=== PATIENT | male | born 1980 ===

== ENCOUNTER 2018-09-11 19:36 | Emergency (ER) | payer SELFPAY ==
[2018-09-11 19:54] VITALS: RESP 18
[2018-09-11] MEDS ORDERED: Oxycodone/Acetaminophen 5/325 mg Tab PO STA (20:04)
[2018-09-11] MEDS ORDERED: Oxycodone/Acetaminophen 5/325 mg Tab ONE (20:17)
--- NOTE | 2018-09-11 20:55 | C.PDOC ---
History Of Present Illness 38 y/o male comes in to ED stating that he was working and was reaching for something when he felt a pop in his shoulder. States that he couldnt move his arm without having pain. He denies weakness, numbness, or other complaints. <Iqra Kruse - Last Filed: 09/11/18 23:01> History Per: Patient History/Exam Limitations: no limitations Onset/Duration Of Symptoms: Hrs Current Symptoms Are (Timing): Still Present <Iqra Kruse - Last Filed: 09/11/18 23:01> <Tasia Pierce - Last Filed: 09/12/18 01:02> Time Seen by Provider: 09/11/18 19:56 Chief Complaint (Nursing): Upper Extremity Problem/Injury Past Medical History Reviewed: Historical Data, Nursing Documentation, Vital Signs Vital Signs: Last Vital Signs Temp 98.7 F 09/11/18 19:50 Pulse 67 09/11/18 19:50 Resp 18 09/11/18 19:50 BP 126/77 09/11/18 19:50 Pulse Ox 98 09/11/18 19:50 Primary Care Provider: FAMILY PROVIDER,NO - Medical History PMH: Hyperlipidemia (NO MEDS) Denies: Chronic Kidney Disease Family History: States: No Known Family Hx - Social History Hx Alcohol Use: Yes Hx Substance Use: No - Immunization History Hx Tetanus Toxoid Vaccination: No Hx Influenza Vaccination: No Hx Pneumococcal Vaccination: No <Iqra Kruse - Last Filed: 09/11/18 23:01> Vital Signs: Last Vital Signs Temp 97.9 F 09/11/18 23:30 Pulse 70 09/11/18 23:30 Resp 18 09/11/18 23:30 BP 130/80 09/11/18 23:30 Pulse Ox 100 09/11/18 23:30 <Tasia Pierce - Last Filed: 09/12/18 01:02> Review Of Systems Except As Marked, All Systems Reviewed And Found Negative. Constitutional: Negative for: Fever, Chills Musculoskeletal: Positive for: Shoulder Pain (right) Skin: Negative for: Rash Neurological: Negative for: Weakness, Numbness <Iqra Kruse - Last Filed: 09/11/18 23:01> Physical Exam - Physical Exam Appears: Non-toxic, No Acute Distress Skin: Dry Head: Normacephalic Eye(s): bilateral: Normal Inspection Oral Mucosa: Moist Neck: Supple Extremity: Tenderness (to right shoulder), No Deformity, No Swelling Extremity: Bilateral: Normal Color And Temperature Neurological/Psych: Oriented x3, Normal Speech, Normal Motor, Normal Sensation <Iqar Kruse - Last Filed: 09/11/18 23:01> ED Course And Treatment O2 Sat by Pulse Oximetry: 98 (RA) Pulse Ox Interpretation: Normal Progress Note: Shoulder XR ordered. Gave patient percocet for the pain. CT of the right shpoulder was ordered. Case was signed out to at 23:00, pending CT. <Iqra Kruse - Last Filed: 09/11/18 23:01> - CT Scan/US CT right upper extremity Other Rad Studies (CT/US): Read By Radiologist, Radiology Report Reviewed CT/US Interpretation: CT scan of the right upper extremity without contrast. Indication: Injury. Technique: Axial CT scan images without contrast. Reformatted coronal and sagittal images. Findings: Normal glenohumeral articulation. Normal acromioclavicular joint. Normal acromion. Normal humeral head and visualized proximal humerus. Normal visualized scapula. There is no demonstrated soft tissue abnormality. Normal visualized pulmonary apex. Normal visualized humerus. There is no demonstrated fracture or osseous destructive process. There is no demonstrated soft tissue abnormality. Normal scapula, including the osseous glenoid rim, acromion, scapular neck, spine, coracoid process, and visualized body. Normal glenohumeral articulation. Normal acromioclavicular joint. Normal visualized humeral head. Normal visualized pulmonary apex. 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 - Scribe Statement The provider has reviewed the documentation as recorded by the Scribe Angie Herrera All medical record entries made by the Braydenibe were at my direction and personally dictated by me. I have reviewed the chart and agree that the record accurately reflects my personal performance of the history, physical exam, medical decision making, and the department course for this patient. I have also personally directed, reviewed, and agree with the discharge instructions and disposition. <Iqra Kruse - Last Filed: 09/11/18 23:01> Physician Patient Turnover Patient Signed Over To: Tasia Pierce Handoff Comments: pending CT of the right shoulder <Iqra Kruse - Last Filed: 09/11/18 23:01>
[2018-09-11 23:31] VITALS: O2SAT 100
[2018-09-12 01:10] VITALS: BP 128/79; PULSE 75; TEMP 98.2
--- NOTE | 2018-09-12 08:52 | CT ---
Date of service: 09/11/2018 PROCEDURE: CT scan of the right shoulder without intravenous contrast PROCEDURE: INDICATION: Injury TECHNIQUE: Multiple axial images were obtained with slice thickness of 2.5 mm. Coronal and sagittal reformatted images were obtained. Iterative reconstruction was used. Radiation dose: Total exam DLP = 466.07 mGy-cm. PROCEDURE: This CT exam was performed using one or more of the following dose reduction techniques: Automated exposure control, adjustment of the mA and/or kV according to patient size, and/or use of iterative reconstruction technique. COMPARISON: None. FINDINGS: Bone alignment and mineralization are normal. There is no acute displaced fracture or bone destruction. The acromioclavicular and glenohumeral joints are preserved. The visualized periarticular muscles and soft tissues are normal. The visualized lung is clear. IMPRESSION: No acute displaced fracture or dislocation. A preliminary report was provided by [facility].
--- NOTE | 2018-09-12 10:32 | RAD ---
Date of service: 09/11/2018 PROCEDURE: Radiographs of the Right Shoulder HISTORY: pain COMPARISON: No prior. TECHNIQUE: 3 views obtained. FINDINGS: BONES: Normal. No fracture. JOINTS: Normal. Glenohumeral and acromioclavicular joints preserved. No osteoarthritis. SOFT TISSUES: Normal. OTHER FINDINGS: None. IMPRESSION: Normal radiographs of the right shoulder.
== END 2018-09-12 01:10 | disposition home or self-care (01) ==
LOC: C.ER 19:36
DX: S43.401A Unspecified sprain of right shoulder joint, initial encounter (principal); X50.1XXA Overexertion from prolonged static or awkward postures, initial encounter; E78.5 Hyperlipidemia, unspecified